=== PATIENT | female | born 1975 | race Caucasian/White ===

== ENCOUNTER 2024-07-20 10:04 | Inpatient (IN) | payer OTHER ==
[~2024-07-20] VITALS: Ht 144.8 cm; Wt 110.5 kg
[~2024-07-20 10:04] MED LIST: Bactrim Ds Tab1 EACH PO; DIPATR PO; DOCU100 PO; Gemfibrozil600 MG PO; METF500 PO; METHI10; YASMIN; Zofran Odt4 MG SL; [UNRECOGNIZED DRUG - OTHER] PO
[2024-07-20] MEDS ORDERED: Ondansetron HCl 2 MG / ML 2ML Vial IV PRN (10:20)
[2024-07-20] MEDS ORDERED: NORG-EE 0.18-01 EACH PO (10:33)
[2024-07-20] MEDS ORDERED: GEMFIBROZIL600 MG PO (10:33)
[2024-07-20] MEDS ORDERED: FOLI1 PO (10:33)
[2024-07-20] MEDS ORDERED: LOSA50 PO (10:33)
[2024-07-20] MEDS ORDERED: METFORMIN HCL500 M3 PO (10:34)
[2024-07-20] MEDS ORDERED: NS 1,000 ML IV SCH ×2 (10:35→15:25)
[2024-07-20 10:36] LABS: BASOPHILS ABSOLUTE AUTO 0.02 K/mm3 (0.00-0.23); BASOPHILS PERCENT AUTO 0 % (0-2); EOSINOPHILS ABSOLUTE AUTO 0.02 K/mm3 (0.00-0.68); EOSINOPHILS PERCENT AUTO 0 % (0-6); Hematocrit 37.1 % (33.0-51.0); IMMATURE GRAN ABSOLUTE AUTO 0.07 K/mm3 (0.00-0.10); IMMATURE GRAN PERCENT AUTO 1 % (0-1); LYMPHOCYTES PERCENT AUTO 5 % (21-46); MONOCYTES ABSOLUTE AUTO 0.12 K/mm3 (0.16-1.47); MONOCYTES PERCENT AUTO 1 % (4-13); Mean Corpuscular HGB 32.7 pg (26.0-34.0); Mean Corpuscular HGB Conc 32.3 g/dL (31.5-36.5); Mean Corpuscular Volume 101 fL (80-100); NEUTROPHILS ABSOLUTE AUTO 11.41 K/mm3 (1.96-9.15); NEUTROPHILS PERCENT AUTO 93 % (41-73); RDW Standard Deviation 58.4 fL (35.1-46.3); Red Blood Cell Count 3.67 M/mm3 (3.80-5.20); White Blood Cell Count 12.24 K/mm3 (4.00-11.30)
[2024-07-20] MEDS ORDERED: Ketorolac Tromethamine 15mg Vial IV ONE (10:50)
[2024-07-20 12:03] LABS: Platelet Count 284 K/mm3 (150-400)
[2024-07-20 12:49] LABS: Source, Urine Clean Catch
[2024-07-20 13:17] LABS: Appearance, Urine Clear (Clear); Bilirubin, Urine Neg (Neg); Blood, Urine 1+ (Neg); Color, Urine Yellow (P-Yellow); Glucose Qualitative, Urine Neg (Neg); Ketones, Urine Neg (Neg); Leukocyte Esterase, Urine Neg (Neg); Nitrite, Urine Neg (Neg); Protein, Urine 2+ (Neg); Specific Gravity, Urine 1.015 (1.003-1.022); Urobilinogen, Urine NORM (Normal)
[2024-07-20 13:33] LABS: Bacteria Few /hpf; Squamous Epithelial Cells Mod /hpf (Few)
[2024-07-20 13:37] LABS: Albumin, Blood 2.8 g/dL (3.4-5.0); Albumin/Globulin Ratio 0.6 (0.8-1.8); Bilirubin, Total 0.4 mg/dL (0.1-1.0); Bun/Creatinine Ratio 14.9 (12.0-20.0); Calcium, Blood 8.7 mg/dL (8.5-10.1); Creatinine, Blood 3.15 mg/dL (0.40-1.00); Globulin, Blood 4.8 g/dL (2.2-4.0); Potassium, Blood 5.5 mmol/L (3.5-5.5); Total Protein, Blood 7.6 g/dL (6.4-8.2)
[2024-07-20] MEDS ORDERED: HYDROmorphone HCl/Pf 1MG SYR IV PRN (15:30)
[2024-07-20] MEDS ORDERED: Prochlorperazine Edisylate 10 mg Vial IV PRN (15:30)
[2024-07-20] MEDS ORDERED: Acetaminophen 325 MG TABLET PO PRN (15:30)
[2024-07-20] MEDS ORDERED: FLU VACC TS2024-25(6MOS UP)/PF 45 MCG/0.5 ML SYRINGE IM SCH (15:30)
[2024-07-20] MEDS ORDERED: CefTRIAXone Sodium 2,000 MG in NS 100 ML IV SCH (16:00)
[2024-07-20] MEDS ORDERED: Insulin Regular 100 UNIT/ML 10ML Vial SC SCH (16:30)
[2024-07-20] MEDS ORDERED: Gemfibrozil 600 MG Tab PO SCH (16:30)
[2024-07-20 17:28] VITALS: BP 146/83
[2024-07-20 19:22] VITALS: BP 147/86
--- NOTE | 2024-07-20 19:31 | NUR ---
ADMIT NTOE PATIENT BROUGHT UP FROM ER. IV RECEPHIN WAS INFUSING AND COMPLETED. A/OX3. COULD NOT TELL ME DATE. DEVELOPMENTAL DELAY. REPEATS WHAT SHE IS TOLD. DENTAL CARIES. OBESITY. REDDENED AREA TO LEFT BREAST AND EXCORIATION TO LEFT AISHA WITH CENTRAL OPENING. WEARING PAD FOR LEAKING/URGENCY. OTHERWISE CONTINENT. ROOM AIR. IV TO RFA. STANDBY ASSIST TO COMMODE. NO NAUSEA AT THIS TIME. TOOK ONE PILL WHOLE WITH WATER. ADMISSION COMPLETED. REPORT GIVEN TO GENNY RUIZ.
[2024-07-21 04:08] VITALS: BP 127/78
--- NOTE | 2024-07-21 06:20 | NUR ---
SHIFT SUMMARY PT ALERT AND ORIENTED TIMES 1-2 . PT IS ER XFER WITH [facility]. PT HAS CONTINUOUS NS @ 100. PT HAS SCD S BILATERAL. SCD'S ARE IN ROOM. PT IS DEVELOPMENTALY DELAYED AND HAS MOTHER AT BEDSIDE. PT IS RECEPTIVE TO CARE. PT APPEARS TO HAVE SLEPT THROUGH THE NIGHT WITHOUT ISSUE. BED IN LOW POSITION, CALL LIGHT WITHIN REACH, RAILS TIMES 2.
[2024-07-21 07:02] VITALS: BP 135/87
[2024-07-21 07:27] LABS: BASOPHILS ABSOLUTE AUTO 0.02 K/mm3 (0.00-0.23); BASOPHILS PERCENT AUTO 0 % (0-2); EOSINOPHILS ABSOLUTE AUTO 0.03 K/mm3 (0.00-0.68); EOSINOPHILS PERCENT AUTO 0 % (0-6); Hematocrit 32.4 % (33.0-51.0); Hemoglobin 10.3 g/dL (11.5-16.0); Mean Corpuscular HGB 31.9 pg (26.0-34.0); Mean Corpuscular HGB Conc 31.8 g/dL (31.5-36.5); Mean Corpuscular Volume 100 fL (80-100); Mean Platelet Volume 9.7 fL (9.1-12.4); Platelet Count 248 K/mm3 (150-400); RDW Coefficient Variation 16.2 % (11.7-14.2); RDW Standard Deviation 59.5 fL (35.1-46.3); Red Blood Cell Count 3.23 M/mm3 (3.80-5.20); White Blood Cell Count 11.18 K/mm3 (4.00-11.30)
[2024-07-21 07:41] LABS: IMMATURE GRAN ABSOLUTE AUTO 0.07 K/mm3 (0.00-0.10); IMMATURE GRAN PERCENT AUTO 1 % (0-1); LYMPHOCYTES ABSOLUTE AUTO 0.67 K/mm3 (0.84-5.20); LYMPHOCYTES PERCENT AUTO 6 % (21-46); MONOCYTES ABSOLUTE AUTO 0.06 K/mm3 (0.16-1.47); MONOCYTES PERCENT AUTO 1 % (4-13); NEUTROPHILS ABSOLUTE AUTO 10.33 K/mm3 (1.96-9.15); NEUTROPHILS PERCENT AUTO 92 % (41-73)
[2024-07-21 07:49] LABS: BASOPHILS ABSOLUTE MAN 0.11 K/mm3 (0.00-0.23); BASOPHILS PERCENT MAN 1 % (0-2); EOSINOPHILS PERCENT MAN 0 % (0-6); LYMPHOCYTES ABSOLUTE MAN 0.44 K/mm3 (0.84-5.20); LYMPHOCYTES PERCENT MAN 4 % (21-46); MONOCYTES ABSOLUTE MAN 0.11 K/mm3 (0.16-1.47); MONOCYTES PERCENT MAN 1 % (4-13); SEG NEUTROPHILS PERCENT MAN 94 % (41-73); TOTAL CELLS COUNTED 100
[2024-07-21 07:51] LABS: Creatinine, Blood 3.39 mg/dL (0.40-1.00)
[2024-07-21] MEDS ORDERED: NS 500 ML IV SCH (08:50)
[2024-07-21] MEDS ORDERED: NORGESTIMATE PO SCH (09:00)
[2024-07-21] MEDS ORDERED: ETHINYL ESTRADIOL PO SCH (09:00)
[2024-07-21 15:34] VITALS: BP 132/76
--- NOTE | 2024-07-21 17:22 | NUR ---
SUMMARY- PT A/O X3, VERBAL AND INTERACTIVE WITH HX DEV DELAY. FAMILY IN THE ROOM ALL DAY INVOLVED/SUPPORTIVE IN PT CARE. PT UP IN THE CHAIR FOR MEALS. TOLERATING FLUIDS BUT NO APPETITE FOR FOOD RELATED TO ABD DISCOMFORT. HAD 1 PUDDING ALL DAY FOR SOLID INTAKE. PT DRANK AMPLE SODA, ONCE SODA DC'D, PT DECLINES TO DRINK WATER OR JUCH JUICE; WILL CONT TO PUSH FLUIDS PT ALLOWS. VOIDED TWICE THIS SHIFT APPROX 250ML EACH VOID MED YELLOW. PT HAVING INTERMITTANT ABD PAIN, MED WITH DILAUDID ONCE WITH RELEIF. WILL REPORT TO NOC RN
[2024-07-21 19:39] VITALS: BP 125/66
[2024-07-22 04:08] VITALS: BP 114/76
--- NOTE | 2024-07-22 06:42 | NUR ---
SHIFT SUMMARY PT ALERT AND ORIENTED TIMES 1-2 . PT IS ER XFER WITH WISAM. PT HAS CONTINUOUS NS @ 100. PT HAS SCD S BILATERAL. PT IS DEVELOPMENTALY DELAYED AND HAS MOTHER AT BEDSIDE. PT IS RECEPTIVE TO CARE. PT APPEARS TO HAVE SLEPT ON AND OFF AND WITH ASSIST ABLE TO USE BEDSIDE COMMODE. PT DID WAKE UP IN EXTREME PAIN AND WAS GIVEN DILAUDID, WHICH WAS EFFECTIVE. BED IN LOW POSITION, CALL LIGHT WITHIN REACH, RAILS TIMES 2.
[2024-07-22 07:48] VITALS: BP 117/75
[2024-07-22 08:11] LABS: Bun/Creatinine Ratio 12.9 (12.0-20.0); Calcium, Blood 8.5 mg/dL (8.5-10.1); Creatinine, Blood 3.25 mg/dL (0.40-1.00)
[2024-07-22 12:04] VITALS: BP 131/70
[2024-07-22 16:15] VITALS: BP 129/94
[2024-07-22] MEDS ORDERED: Sennosides 8.6 MG Tab PO PRN (17:10)
--- NOTE | 2024-07-22 18:29 | NUR ---
SUMMARY- PT A/O X3, SITS UP IN THE CHAIR FOR MEALS. AMBULATES SBA. ENCOURATING FOOD AND FLUIDS IN THE WAY OF WATER AND JUICE. IVF DC'D TODAY. PT HAD LG BM TODAY. VOIDING MED TO LIGHT YELLOW URINE. HAD A FEW INTERMITTANT EPISODES OF ABD PAIN, COMES ON STRONG, HOLDS ONTO HER R SIDE, PAIN SUBSIDES ON ITS OWN WITHIN 10 MIN. MOM AT BEDSIDE, SUPPORTIVE IN PT CARE PT IS DEV DELAYED AND RELEYS ON HER MOM FOR SECURITY, MOM WILL STAY THE NIGHT.
[2024-07-22 19:33] VITALS: BP 145/90
--- NOTE | 2024-07-23 05:05 | NUR ---
PT SLEPT WELL THIS NIGHT. VS WNL, DENIES PAIN, UP TO BR WITH SBA. MOM AT BEDSIDE D/T DEVELOPE DELAYED. VERY HAPPY, PLEASANT, AND COOPERATIVE INDIVIDUAL. VOIDING AND HAD BM. CBG 137 NO COVERAGE REQUIRED. PLAN TO RETURN HOME WITH MOM.
[2024-07-23 07:26] VITALS: BP 139/86
[2024-07-23] MEDS ORDERED: ACET325 PO (11:51)
[2024-07-23] MEDS ORDERED: AMOCLA500 PO (11:52)
--- NOTE | 2024-07-23 13:56 | NUR ---
DISCHARGE REVIEWED WITH PT AND MOTHER FOR INSTRUCT AND MEDS. SHE VERBALIZED UNDERSTANDING . AIDE TO REMOVE IV NO TELE. PT WHEELED TO DOOR AT 1358
== END 2024-07-23 13:58 | disposition home or self-care (01) | DRG 394 ==
LOC: ER 10:04 → MEDS 15:27
PROVIDERS: Physician Assistant; Student in an Organized Health Care Education/Training Program; ADMIT Internal Medicine
DX: K35.80 Unspecified acute appendicitis (principal); E87.20 Acidosis, unspecified; N18.5 Chronic kidney disease, stage 5; N17.9 Acute kidney failure, unspecified; E78.5 Hyperlipidemia, unspecified; E11.22 Type 2 diabetes mellitus with diabetic chronic kidney disease; R62.50 Unspecified lack of expected normal physiological development in childhood; I12.9 Hypertensive chronic kidney disease with stage 1 through stage 4 chronic kidney disease, or unspecified chronic kidney disease; Z88.0 Allergy status to penicillin; Z79.899 Other long term (current) drug therapy; Z79.84 Long term (current) use of oral hypoglycemic drugs
CPT/HCPCS: 36415; 74177; 80048; 80053; 81001; 82570; 82947; 83690; 84300; 85025; 96361; 96374-59; 99285-25; A9270; J0696; J1171; J1815; J1885; J2405; J7030; Q9967

== ENCOUNTER 2024-07-29 10:21 | Emergency (ER) | payer OTHER ==
[~2024-07-29] VITALS: Ht 144.8 cm; Wt 108.9 kg
[~2024-07-29 10:21] MED LIST changes: +ACET325 PO; +AMOCLA500 PO; +FOLI1 PO; +GEMFIBROZIL600 MG PO; +LOSA50 PO; +METFORMIN HCL500 M3 PO; +NORG-EE 0.18-01 EACH PO
[2024-07-29] MEDS ORDERED: NS 1,000 ML IV SCH (11:15)
[2024-07-29 11:28] LABS: Hematocrit 28.1 % (33.0-51.0); Hemoglobin 8.9 g/dL (11.5-16.0); Mean Corpuscular HGB 32.2 pg (26.0-34.0); Mean Corpuscular HGB Conc 31.7 g/dL (31.5-36.5); Mean Corpuscular Volume 102 fL (80-100); Mean Platelet Volume 9.8 fL (9.1-12.4); Platelet Count 114 K/mm3 (150-400); RDW Coefficient Variation 15.2 % (11.7-14.2); RDW Standard Deviation 56.6 fL (35.1-46.3); Red Blood Cell Count 2.76 M/mm3 (3.80-5.20); White Blood Cell Count 1.01 K/mm3 (4.00-11.30)
[2024-07-29 11:51] LABS: Albumin, Blood 2.4 g/dL (3.4-5.0); Albumin/Globulin Ratio 0.4 (0.8-1.8); Bilirubin, Total 0.6 mg/dL (0.1-1.0); Calcium, Blood 9.1 mg/dL (8.5-10.1); Creatinine, Blood 3.24 mg/dL (0.40-1.00); Globulin, Blood 6.1 g/dL (2.2-4.0); Potassium, Blood 4.7 mmol/L (3.5-5.5); Total Protein, Blood 8.5 g/dL (6.4-8.2)
[2024-07-29 11:52] LABS: Source, Urine Clean Catch
[2024-07-29 12:28] LABS: Appearance, Urine Cloudy (Clear); Bilirubin, Urine Neg (Neg); Blood, Urine 1+ (Neg); Color, Urine Yellow (P-Yellow); Glucose Qualitative, Urine Neg (Neg); Ketones, Urine 1+ (Neg); Leukocyte Esterase, Urine Neg (Neg); Nitrite, Urine Neg (Neg); Protein, Urine 3+ (Neg); Urobilinogen, Urine NORM (Normal)
[2024-07-29 12:56] LABS: BASOPHILS ABSOLUTE MAN 0.02 K/mm3 (0.00-0.23); BASOPHILS PERCENT MAN 2 % (0-2); EOSINOPHILS ABSOLUTE MAN 0.08 K/mm3 (0.00-0.68); EOSINOPHILS PERCENT MAN 8 % (0-6); LYMPHOCYTES PERCENT MAN 40 % (21-46); MONOCYTES PERCENT MAN 0 % (4-13); SEG NEUTROPHILS PERCENT MAN 50 % (41-73); TOTAL CELLS COUNTED 50
[2024-07-29 13:00] LABS: Amorphous Mod (0-Heavy); Granular Casts 0-2 /lpf (0); Uric Acid Crystals Mod /hpf
[2024-07-29 13:01] LABS: Red Blood Cells, Urine 0-2 /hpf (0-2); White Blood Cells, Urine 0-2 /hpf (0-5)
[2024-07-29 13:02] LABS: Squamous Epithelial Cells Many /hpf (Few)
[2024-07-29 13:03] LABS: Bacteria Mod /hpf; Yeast/Fungi Urine Rare /hpf
[2024-07-29 13:04] LABS: Mucus Light (0-Heavy)
[2024-07-29] MEDS ORDERED: OMEP20ER PO (14:06)
[2024-07-29] MEDS ORDERED: ONDA4ODT MM (14:06)
[2024-07-29 14:24] VITALS: BP 135/83
[2024-08-01] MEDS ORDERED: CIPRO250 MG PO (09:19)
== END 2024-07-29 14:20 | disposition home or self-care (01) ==
LOC: ER 10:21
PROVIDERS: Emergency Medicine
DX: I13.2 Hypertensive heart and chronic kidney disease with heart failure and with stage 5 chronic kidney disease, or end stage renal disease (principal); R10.9 Unspecified abdominal pain; D61.818 Other pancytopenia; E11.22 Type 2 diabetes mellitus with diabetic chronic kidney disease; I50.9 Heart failure, unspecified; N18.6 End stage renal disease; Z79.3 Long term (current) use of hormonal contraceptives; Z79.02 Long term (current) use of antithrombotics/antiplatelets; Z79.1 Long term (current) use of non-steroidal anti-inflammatories (NSAID); Z79.2 Long term (current) use of antibiotics
CPT/HCPCS: 74177; 80053; 81001; 83690; 85025; 87077; 87086; 87186; 99284-25; Q9967

== ENCOUNTER 2024-08-03 11:24 | Inpatient (IN) | payer OTHER ==
[~2024-08-03] VITALS: Ht 167.6 cm; Wt 112.0 kg
[~2024-08-03 11:24] MED LIST changes: +CIPRO250 MG PO; +OMEP20ER PO; +ONDA4ODT MM
[2024-08-03] MEDS ORDERED: Ondansetron HCl 2 MG / ML 2ML Vial IV ONE (11:40)
[2024-08-03] MEDS ORDERED: Morphine Sulfate 4 MG/1 ML Injection IV ONE ×2 (11:40→13:55)
[2024-08-03 12:25] LABS: Hematocrit 24.3 % (33.0-51.0); Hemoglobin 7.9 g/dL (11.5-16.0); Mean Corpuscular HGB 32.2 pg (26.0-34.0); Mean Corpuscular HGB Conc 32.5 g/dL (31.5-36.5); Mean Corpuscular Volume 99 fL (80-100); Mean Platelet Volume 12.9 fL (9.1-12.4); Platelet Count 58 K/mm3 (150-400); RDW Coefficient Variation 15.9 % (11.7-14.2); RDW Standard Deviation 57.1 fL (35.1-46.3); Red Blood Cell Count 2.45 M/mm3 (3.80-5.20)
[2024-08-03 12:36] LABS: BASOPHILS PERCENT AUTO 0 % (0-2); EOSINOPHILS ABSOLUTE AUTO 0.01 K/mm3 (0.00-0.68); EOSINOPHILS PERCENT AUTO 3 % (0-6); IMMATURE GRAN PERCENT AUTO 0 % (0-1); LYMPHOCYTES ABSOLUTE AUTO 0.26 K/mm3 (0.84-5.20); LYMPHOCYTES PERCENT AUTO 87 % (21-46); MONOCYTES ABSOLUTE AUTO 0.01 K/mm3 (0.16-1.47); MONOCYTES PERCENT AUTO 3 % (4-13); NEUTROPHILS ABSOLUTE AUTO 0.02 K/mm3 (1.96-9.15); NEUTROPHILS PERCENT AUTO 7 % (41-73)
[2024-08-03 12:50] LABS: BASOPHILS PERCENT MAN 0 % (0-2); EOSINOPHILS PERCENT MAN 0 % (0-6); LYMPHOCYTES ABSOLUTE MAN 0.28 K/mm3 (0.84-5.20); LYMPHOCYTES PERCENT MAN 96 % (21-46); MONOCYTES PERCENT MAN 0 % (4-13); NEUTROPHILS ABSOLUTE MAN 0.01 K/mm3 (1.96-9.15); SEG NEUTROPHILS PERCENT MAN 4 % (41-73); TOTAL CELLS COUNTED 25
[2024-08-03 15:10] LABS: Magnesium, Blood 2.5 mg/dL (1.6-2.4)
[2024-08-03 15:30] LABS: Albumin, Blood 1.9 g/dL (3.4-5.0); Albumin/Globulin Ratio 0.3 (0.8-1.8); Bilirubin, Total 0.6 mg/dL (0.1-1.0); Bun/Creatinine Ratio 19.6 (12.0-20.0); Creatinine, Blood 5.5 mg/dL (0.40-1.00); Globulin, Blood 6.4 g/dL (2.2-4.0); Potassium, Blood 5.2 mmol/L (3.5-5.5); Total Protein, Blood 8.3 g/dL (6.4-8.2)
[2024-08-03] MEDS ORDERED: FentaNYL Citrate 50 MCG/ML 2 ML Injection IV ONE (15:35)
[2024-08-03 16:11] LABS: Source, Urine Clean Catch
[2024-08-03 16:17] LABS: Appearance, Urine Cloudy (Clear); Bilirubin, Urine Neg (Neg); Blood, Urine 1+ (Neg); Color, Urine Yellow (P-Yellow); Glucose Qualitative, Urine Neg (Neg); Ketones, Urine Neg (Neg); Leukocyte Esterase, Urine Neg (Neg); Nitrite, Urine Neg (Neg); Protein, Urine 3+ (Neg); Urobilinogen, Urine NORM (Normal)
[2024-08-03 16:33] LABS: Amorphous Mod (0-Heavy); Red Blood Cells, Urine 0-2 /hpf (0-2); White Blood Cells, Urine 0-2 /hpf (0-5)
[2024-08-03 16:34] LABS: Bacteria Few /hpf; Squamous Epithelial Cells Few /hpf (Few)
[2024-08-03] MEDS ORDERED: NS 1,000 ML IV SCH (16:35)
[2024-08-03] MEDS ORDERED: Ampicillin Sod/Sulbactam Sod 3 GM in NS 100 ML IV SCH (17:00)
[2024-08-03] MEDS ORDERED: FLU VACC TS2024-25(6MOS UP)/PF 45 MCG/0.5 ML SYRINGE IM SCH (17:00)
[2024-08-03 18:03] LABS: Hemoglobin 7.1 g/dL (11.5-16.0); Mean Corpuscular HGB 32.6 pg (26.0-34.0); Mean Corpuscular HGB Conc 32.3 g/dL (31.5-36.5); Mean Corpuscular Volume 101 fL (80-100); Mean Platelet Volume 11.7 fL (9.1-12.4); Platelet Count 64 K/mm3 (150-400); RDW Coefficient Variation 15.4 % (11.7-14.2); RDW Standard Deviation 56.7 fL (35.1-46.3); Red Blood Cell Count 2.18 M/mm3 (3.80-5.20)
[2024-08-03 18:08] LABS: IMMATURE RETIC FRACTION 5.5 % (2.3-16.0); RETIC HGB EQUIVALENT 35.3 pg (28.20-36.60); RETICULOCYTE ABSOLUTE 0.008 M/mm3 (0.0200-0.1100); RETICULOCYTE COUNT PERCENT 0.36 % (0.50-2.50)
[2024-08-03 18:10] LABS: White Blood Cell Count 0.26 K/mm3 (4.00-11.30)
[2024-08-03 18:23] LABS: BASOPHILS ABSOLUTE MAN 0.01 K/mm3 (0.00-0.23); BASOPHILS PERCENT MAN 4 % (0-2); EOSINOPHILS PERCENT MAN 0 % (0-6); International Normalized Ratio 1.13; LYMPHOCYTES ABSOLUTE MAN 0.24 K/mm3 (0.84-5.20); LYMPHOCYTES PERCENT MAN 96 % (21-46); MONOCYTES PERCENT MAN 0 % (4-13); TOTAL CELLS COUNTED 25
[2024-08-03 18:41] VITALS: BP 104/49
[2024-08-03] MEDS ORDERED: OxyCODONE HCL 5 MG TAB PO PRN (19:05)
[2024-08-03] MEDS ORDERED: Acetaminophen 325 MG TABLET PO PRN (19:05)
[2024-08-03 20:32] VITALS: BP 153/112
[2024-08-03] MEDS ORDERED: Lactobacil 2-S.Thermo-Bifido 1 1 Cap PO SCH (21:00)
[2024-08-03 22:33] LABS: Hemoglobin 6.3 g/dL (11.5-16.0); Mean Corpuscular HGB 31.8 pg (26.0-34.0); Mean Corpuscular HGB Conc 31.5 g/dL (31.5-36.5); Mean Corpuscular Volume 101 fL (80-100); Mean Platelet Volume 11.1 fL (9.1-12.4); Platelet Count 65 K/mm3 (150-400); RDW Coefficient Variation 15.7 % (11.7-14.2); RDW Standard Deviation 57.5 fL (35.1-46.3); Red Blood Cell Count 1.98 M/mm3 (3.80-5.20)
[2024-08-03 22:54] LABS: White Blood Cell Count 0.32 K/mm3 (4.00-11.30)
--- NOTE | 2024-08-03 23:03 | NUR ---
LAB REPORTS WBC COUNT 0.32, CHARGE NURSE NOTIFIED
[2024-08-03 23:25] VITALS: BP 143/82
[2024-08-04] VITALS (10 sets, daily range): BP systolic 118–143; BP diastolic 69–95
[2024-08-04] MEDS ORDERED: NS 500 ML IV SCH (00:40)
[2024-08-04] MEDS ORDERED: FentaNYL Citrate 50 MCG/ML 2 ML Injection IV ONE (01:35)
[2024-08-04] MEDS ORDERED: HYDROmorphone HCl 0.5 MG/0.5 ML SYR IV PRN ×2 (04:05→10:25)
--- NOTE | 2024-08-04 04:58 | NUR ---
SHIFT SUMMARY PT ALERT AND ORIENTED TO SELF AND MOTHER. PT HAS DEVELOPMENTAL DELAY. SHE IS ABLE TO SAY YES AND NO TO QUESTIONS AND MAKE ONE TO TWO WORDS SENTENCES. PT ENDORSES SEVERE PAIN IN HER RIGHT ABDOMEN. SEE NEW ORDERS REGARDING PAIN MEDICATION. PT ALSO USING HEATING PAD TO ALLEVIATE PAIN. OBEYS COMMANDS, COOPERATIVE WITH CARE. MOTHER AT BEDSIDE AND IS HELPFUL. IN A SINUS RHYTHM TO SINUS TACH, HR 90 S TO 110 S. PT DENIES CHEST PAIN/PRESSURE. BLE EDEMA 2+. RA-2L NC DEPENDING ON OXYGEN DEMAND. PT IS TACHYPNEIC, RR 26-28. RA AT BASELINE. PT ON BEDREST AT THIS TIME. AT BL ABLE TO AMBULATE INDEPENDENTLY. Q2 TURNS. PT IS CONTINENT AT BL, BUT HAS BEEN INTERMITTENTLY INCONTINENT AT HOME WITHIN LAST FEW DAYS, PER MOTHER. NO OUTPUT THIS SHIFT. POWER GLIDE INSERTED, PATENT AND DRAWS WELL. PT RECEIVED 1 UNIT PRBC THIS SHIFT DUE TO HGB OF 6.3. SKIN BREAKDOWN EXHIBITED ON LABIA, BUTTOCKS, UNDER LEFT BREAST UPON ADMISSION. SEE PHOTOS IN CHART.
[2024-08-04 05:49] LABS: Hematocrit 22.2 % (33.0-51.0); Hemoglobin 7.2 g/dL (11.5-16.0); Mean Corpuscular HGB 31.9 pg (26.0-34.0); Mean Corpuscular HGB Conc 32.4 g/dL (31.5-36.5); Mean Corpuscular Volume 98 fL (80-100); Mean Platelet Volume 10.8 fL (9.1-12.4); Platelet Count 70 K/mm3 (150-400); RDW Coefficient Variation 17.2 % (11.7-14.2); RDW Standard Deviation 61.1 fL (35.1-46.3); Red Blood Cell Count 2.26 M/mm3 (3.80-5.20)
[2024-08-04 06:01] LABS: White Blood Cell Count 0.27 K/mm3 (4.00-11.30)
[2024-08-04 06:11] LABS: Albumin, Blood 1.8 g/dL (3.4-5.0); Albumin/Globulin Ratio 0.3 (0.8-1.8); Bilirubin, Total 0.7 mg/dL (0.1-1.0); Bun/Creatinine Ratio 18.1 (12.0-20.0); Calcium, Blood 8.3 mg/dL (8.5-10.1); Creatinine, Blood 6.03 mg/dL (0.40-1.00); Globulin, Blood 5.7 g/dL (2.2-4.0); Potassium, Blood 4.9 mmol/L (3.5-5.5); Total Protein, Blood 7.5 g/dL (6.4-8.2)
[2024-08-04 06:15] LABS: BASOPHILS PERCENT MAN 0 % (0-2); EOSINOPHILS PERCENT MAN 0 % (0-6); LYMPHOCYTES ABSOLUTE MAN 0.24 K/mm3 (0.84-5.20); LYMPHOCYTES PERCENT MAN 92 % (21-46); MONOCYTES PERCENT MAN 0 % (4-13); NEUTROPHILS ABSOLUTE MAN 0.02 K/mm3 (1.96-9.15); SEG NEUTROPHILS PERCENT MAN 8 % (41-73); TOTAL CELLS COUNTED 25
[2024-08-04] MEDS ORDERED: HYDROmorphone HCl 0.5 MG/0.5 ML SYR IV ONE (09:30)
[2024-08-04] MEDS ORDERED: Lactated Ringer's 1,000 ML IV SCH (10:25)
[2024-08-04 13:41] LABS: Hematocrit 23.5 % (33.0-51.0); Hemoglobin 7.5 g/dL (11.5-16.0); Mean Corpuscular HGB 31.9 pg (26.0-34.0); Mean Corpuscular HGB Conc 31.9 g/dL (31.5-36.5); Mean Corpuscular Volume 100 fL (80-100); Mean Platelet Volume 10.3 fL (9.1-12.4); Platelet Count 68 K/mm3 (150-400); RDW Coefficient Variation 18.1 % (11.7-14.2); RDW Standard Deviation 65.2 fL (35.1-46.3); Red Blood Cell Count 2.35 M/mm3 (3.80-5.20)
[2024-08-04 13:45] LABS: White Blood Cell Count 0.23 K/mm3 (4.00-11.30)
[2024-08-04 14:03] LABS: BASOPHILS PERCENT MAN 0 % (0-2); EOSINOPHILS PERCENT MAN 0 % (0-6); LYMPHOCYTES ABSOLUTE MAN 0.22 K/mm3 (0.84-5.20); LYMPHOCYTES PERCENT MAN 96 % (21-46); MONOCYTES PERCENT MAN 4 % (4-13); TOTAL CELLS COUNTED 25
[2024-08-04] MEDS ORDERED: Lactated Ringer's 1,000 ML IV ONE (14:35)
[2024-08-04] MEDS ORDERED: NS 1,000 ML IV SCH (15:30)
[2024-08-04] MEDS ORDERED: Sodium Bicarb 8.4% Inj 75 MEQ in Sodium Chloride 0.45% 1,000 ML IV SCH (15:40)
[2024-08-04] MEDS ORDERED: FILGRASTIM-AYOW 480 MCG/0.8 ML 0.8MLSYR SC SCH (16:00)
[2024-08-04 16:17] LABS: Source, Urine Foley catheter
[2024-08-04 16:22] LABS: Appearance, Urine Hazy (Clear); Bilirubin, Urine Neg (Neg); Blood, Urine 3+ (Neg); Color, Urine Yellow (P-Yellow); Glucose Qualitative, Urine Neg (Neg); Ketones, Urine Neg (Neg); Leukocyte Esterase, Urine Neg (Neg); Nitrite, Urine Neg (Neg); Protein, Urine 3+ (Neg); Urobilinogen, Urine NORM (Normal)
[2024-08-04 16:23] LABS: Base Excess Venous -19.4 mmol/L; Bicarbonate Venous 10.8 mmol/L (24.0-30.0); PCO2 Venous 32.9 mmHg (38-42)
[2024-08-04 16:32] LABS: Amorphous Mod (0-Heavy); Bacteria Few /hpf; Squamous Epithelial Cells Not Seen /hpf (Few); White Blood Cells, Urine 0-2 /hpf (0-5); Yeast/Fungi Urine Mod /hpf
[2024-08-04 17:19] LABS: Albumin, Blood 1.7 g/dL (3.4-5.0); Anion Gap 21 mmol/L (3-11); Blood Urea Nitrogen 107 mg/dL (8-24); Bun/Creatinine Ratio 17.5 (12.0-20.0); CO2, Blood 11 mmol/L (21-32); Calcium, Blood 8.1 mg/dL (8.5-10.1); Chloride, Blood 108 mmol/L (98-108); Glomerular Filtration Rate 8 (60-); Glucose, Blood 153 mg/dL (70-99); Phosphorus, Blood 9.4 mg/dL (2.5-4.9); Potassium, Blood 5.5 mmol/L (3.5-5.5); Sodium, Blood 134 mmol/L (136-145)
[2024-08-04 17:26] LABS: Influenza A, PCR NEGATIVE (NEGATIVE); Influenza B, PCR NEGATIVE (NEGATIVE); Resp Syncytial Virus, PCR NEGATIVE (NEGATIVE); SARS-Cov-2 (COVID-19) PCR, MMC NEGATIVE (NEGATIVE)
[2024-08-04] MEDS ORDERED: Sodium Bicarb 8.4% Inj 150 MEQ in Dextrose 5% 1,000 ML IV SCH (17:40)
--- NOTE | 2024-08-04 18:26 | NUR ---
SHIFT SUMMARY: NEURO: AT BEGINING OF SHIFT PT WAS RESPONSIVE AND ABLE TO ANSWER YES AND NO TO QUESTIONS. THROUGOUT SHIFT PT BECAME LETHARGIC AND LESS RESPONSIVE. PT AWAKENS TO VERBAL AND NOXIOUS STIMULI BUT ONLY OPENS EYES BRIEFLY. PT NOT ANSWERING YES OR NO QUESTIONS BY THE END OF THE SHIFT. CARDIAC: NO ACUTE CHANGES RESP: PTS LUNG SOUNDS DIFFICULT TO AUSCULTATE DUE TO PT CONTINUOUSLY MOANING. ANABLE TO HEAR LUNG SOUNDS PAST AUDITORY NOISES. GI/: PT DID NOT HAVE ANY URINARY OUPUT THIS AM SINCE ARRIVAL LAST NIGHT DESPITE IV FLUIDS. CHUNG WAS PLACED PER PROVIDER ORDERS. 600ML WAS DRAINED INITIALLY. PT HAS NOT HAD A BOWEL MOVEMENT TODAY. SKIN: PTS GROIN AND ELIEZER AREA IS COMPLATELY EXCORRIATED AND IRRITATED WITH BLISTERS AND OPEN SORES WHICH ALSO WARANTED A CHUNG. PT HAS BEEN TURNED Q2. PT WENT FOR A CT TODAY AND RECIEVED MORE BLOOD WORK. PT HAD MULTIPLE CRITICAL LABS AND THE PROVIDER WAS NOTIFIED. NO OTHER SIGNIFICANT EVENTS HAPPENED DURING THIS SHIFT. WILL CONTINUE TO CARE FOR PT TILL END OF SHIFT.
[2024-08-04 19:31] LABS: Mean Corpuscular HGB 31.7 pg (26.0-34.0); Mean Corpuscular HGB Conc 31.8 g/dL (31.5-36.5); Mean Corpuscular Volume 100 fL (80-100); Mean Platelet Volume 10.6 fL (9.1-12.4); Platelet Count 74 K/mm3 (150-400); Red Blood Cell Count 2.21 M/mm3 (3.80-5.20)
[2024-08-04 19:34] LABS: White Blood Cell Count 0.24 K/mm3 (4.00-11.30)
[2024-08-04 20:16] LABS: BASOPHILS PERCENT MAN 0 % (0-2); EOSINOPHILS PERCENT MAN 4 % (0-6); LYMPHOCYTES ABSOLUTE MAN 0.22 K/mm3 (0.84-5.20); LYMPHOCYTES PERCENT MAN 92 % (21-46); MONOCYTES PERCENT MAN 0 % (4-13); SEG NEUTROPHILS PERCENT MAN 4 % (41-73); TOTAL CELLS COUNTED 25
[2024-08-04 22:45] LABS: Bun/Creatinine Ratio 18.3 (12.0-20.0); Calcium, Blood 7.8 mg/dL (8.5-10.1); Creatinine, Blood 6.24 mg/dL (0.40-1.00); Potassium, Blood 5.3 mmol/L (3.5-5.5)
[2024-08-05] VITALS (10 sets, daily range): BP systolic 107–154; BP diastolic 60–82
--- NOTE | 2024-08-05 01:03 | NUR ---
[facility]SF[facility] CALLED. UPDATE ON PTS STATUS GIVEN. PT IS CURRENTLY SECOND IN LINE FOR A BED ON THE [facility] TRANSPLANT UNIT.
[2024-08-05 03:21] LABS: Uric Acid, Blood 10.1 mg/dL (2.6-6.0)
[2024-08-05 03:29] LABS: Hematocrit 21.6 % (33.0-51.0); Hemoglobin 6.9 g/dL (11.5-16.0); Mean Corpuscular HGB 31.5 pg (26.0-34.0); Mean Corpuscular HGB Conc 31.9 g/dL (31.5-36.5); Mean Corpuscular Volume 99 fL (80-100); Mean Platelet Volume 10.9 fL (9.1-12.4); Platelet Count 67 K/mm3 (150-400); RDW Standard Deviation 64.6 fL (35.1-46.3); Red Blood Cell Count 2.19 M/mm3 (3.80-5.20)
[2024-08-05 03:34] LABS: White Blood Cell Count 0.19 K/mm3 (4.00-11.30)
[2024-08-05 03:50] LABS: Albumin, Blood 1.7 g/dL (3.4-5.0); Anion Gap 19 mmol/L (3-11); Blood Urea Nitrogen 115 mg/dL (8-24); Bun/Creatinine Ratio 17.9 (12.0-20.0); CO2, Blood 15 mmol/L (21-32); Calcium, Blood 7.5 mg/dL (8.5-10.1); Chloride, Blood 105 mmol/L (98-108); Creatinine, Blood 6.41 mg/dL (0.40-1.00); Glomerular Filtration Rate 7 (60-); Glucose, Blood 234 mg/dL (70-99); Phosphorus, Blood 9.6 mg/dL (2.5-4.9); Potassium, Blood 4.9 mmol/L (3.5-5.5); Sodium, Blood 134 mmol/L (136-145)
[2024-08-05 03:57] LABS: BASOPHILS PERCENT MAN 0 % (0-2); EOSINOPHILS ABSOLUTE MAN 0.01 K/mm3 (0.00-0.68); EOSINOPHILS PERCENT MAN 8 % (0-6); LYMPHOCYTES ABSOLUTE MAN 0.17 K/mm3 (0.84-5.20); LYMPHOCYTES PERCENT MAN 92 % (21-46); MONOCYTES PERCENT MAN 0 % (4-13); TOTAL CELLS COUNTED 25
[2024-08-05 04:16] LABS: SEG NEUTROPHILS PERCENT MAN 0 % (41-73)
--- NOTE | 2024-08-05 06:09 | NUR ---
SHIFT SUMMARY- 1 UNIT PRBC'S GIVEN NEURO: PT WAKES TO VERBAL STIMULI. TRACKS WITH EYES. FOLLOWS COMMANDS WITH FLICKER STRENGTH IN ALL EXTREMETIES. UNABLE TO VERBALIZE THIS SHIFT BUT PT DOES MOAN. EQUAL PINPOINT PUPILS. CARDIAC: TACHYCARDIC IN LOW 100'S. PT IS THIRD SPACING. NOW +3 BLE AND +2 BUE. EXTREMETIES ELEVATED AND SCD'S IN PLACE. LUNGS: DURING THE FIRST ASSESSMENT PT HAD END EXPIRATORY WHEEZES IN UPPER LOBES AND DIMINISHED BASES. PT IS NOW DIMINISHED THROUGHOUT, NO CRACKLES HEARD. ON 4 L NC. GRUNTING/SPLINTING WITH RESPIRATIONS AT A RATE OF 22-30. GI/: HYPOACTIVE BOWEL TONES. NO BM. TENDERNESS AND GUARDING IN RUQ. CHUNG IS DRAINING HAZY YELLOW URINE AT APPROXIMATELY 25ML/HR. CHUNG CARE COMPLETED TWICE THIS SHIFT. SKIN: PT HAS SOME PETECHIA ON BACKSIDE, BLEEDING GUMS, AND ULCERATION ON HER LIP AND TONGUE. MAY BENEFIT FROM MAGIC MOUTHWASH. A NEW RED AREA ON LEFT FOOT THAT APPEARS TO BEGINNING TO BLISTER- PHOTO IN CHART. A FEW OF THE BOILS IN HER GROIN ARE OPEN. INNER DRY APPLIED TO FOLDS. CHG BATH COMPLETED THIS SHIFT, Q8 CHUNG CARE COMPLETED, Q4 SUCTION ORAL CARE AND NEW YONKAUR WAS SET UP. ROOM WAS WIPED DOWN WITH DISINFECTANT AND THE DOOR TO THE PT'S ROOM WAS KEPT CLOSED.
[2024-08-05 09:08] LABS: Base Excess Venous -11.6 mmol/L; Bicarbonate Venous 15.9 mmol/L (24.0-30.0); pH Blood Venous 7.25 (7.34-7.37)
[2024-08-05 09:31] LABS: International Normalized Ratio 1.19; Prothrombin Time Results 12.6 Sec (9.7-11.5)
[2024-08-05 09:34] LABS: Albumin, Blood 1.5 g/dL (3.4-5.0); Albumin/Globulin Ratio 0.3 (0.8-1.8); Bilirubin, Direct 0.7 mg/dL (0.0-0.3); Bilirubin, Indirect 0.2 mg/dL (0.1-0.7); Bilirubin, Total 0.9 mg/dL (0.1-1.0); Globulin, Blood 5.4 g/dL (2.2-4.0); Total Protein, Blood 6.9 g/dL (6.4-8.2)
[2024-08-05 10:54] LABS: Hematocrit 21.7 % (33.0-51.0); Hemoglobin 7.2 g/dL (11.5-16.0); Mean Corpuscular HGB 31.3 pg (26.0-34.0); Mean Corpuscular HGB Conc 33.2 g/dL (31.5-36.5); Mean Platelet Volume 9.9 fL (9.1-12.4); Platelet Count 51 K/mm3 (150-400); RDW Coefficient Variation 19.4 % (11.7-14.2); RDW Standard Deviation 66.4 fL (35.1-46.3)
[2024-08-05 10:56] LABS: BASOPHILS PERCENT AUTO 0 % (0-2); EOSINOPHILS ABSOLUTE AUTO 0.01 K/mm3 (0.00-0.68); EOSINOPHILS PERCENT AUTO 8 % (0-6); IMMATURE GRAN PERCENT AUTO 0 % (0-1); LYMPHOCYTES ABSOLUTE AUTO 0.11 K/mm3 (0.84-5.20); LYMPHOCYTES PERCENT AUTO 85 % (21-46); MONOCYTES PERCENT AUTO 0 % (4-13); Mean Corpuscular Volume 94 fL (80-100); NEUTROPHILS ABSOLUTE AUTO 0.01 K/mm3 (1.96-9.15); NEUTROPHILS PERCENT AUTO 8 % (41-73)
[2024-08-05 10:58] LABS: White Blood Cell Count 0.13 K/mm3 (4.00-11.30)
[2024-08-05 11:34] LABS: BASOPHILS PERCENT MAN 0 % (0-2); EOSINOPHILS PERCENT MAN 4 % (0-6); LYMPHOCYTES ABSOLUTE MAN 0.12 K/mm3 (0.84-5.20); LYMPHOCYTES PERCENT MAN 96 % (21-46); MONOCYTES PERCENT MAN 0 % (4-13); TOTAL CELLS COUNTED 25
[2024-08-05] MEDS ORDERED: HYDROmorphone HCl/Pf 1MG SYR IV PRN (12:30)
[2024-08-05 15:02] LABS: PCO2 Arterial 41.9 mmHg (35-45); PO2 Arterial 77.5 mmHg (80-100); pH Blood Arterial 7.26 (7.35-7.45)
[2024-08-05] MEDS ORDERED: Furosemide 10 MG/ML 4ML Vial IV STA (16:17)
[2024-08-05] MEDS ORDERED: Pantoprazole Sodium 40 MG Injection IV SCH (16:30)
--- NOTE | 2024-08-05 16:41 | NUR ---
SHIFT/ TRANSFER SUMMARY: NEURO: PT VERY DROUSY ANY ALTERED AT THIS BEGINING OF SHIFT. TOWARDS THIS AFTERNOON PT BECAME MORE ALERT AND WAS ABLE TO INTERACT WITH THIS RN MORE. PT ABLE TO ANSWER YES AND NO BUT NOTHING FURTHER. CARDIAC: NO ACUTE CHANGES RESP: PT CONTINUES TO HAVE LABORED BREATHING. ORAL CARE PERFORMED THIS AM. BLOOD CASTS WERE FOUND ON ROOF OF PTS MOUTH. CASTS WERE REMOVED AND PTS BREATHING DOES SOUND LESS "GRUNTED". PT CONTINUES TO HAVE BLEEDING IN MOUTH FROM BITING CHEEK AND LIP. LUNG SOUNDS DIM. CHEST XR PERFORMED THIS AFTERNOON. GI/: PT DID NOT HAVE A BOWEL MOVEMENT TODAY. CHUNG REMAINS IN PLACE AND HAS HAD VERY LITTLE URINARY OUTPUT. THIS RN NOTIFIED DR TRUJILLO THAT PT WAS 2L FLUID OVERLOADED THIS AFTERNOON AROUND 1400 DURING PT ROUNDING. LASIX WERE ORDERED BY PROVIDER AT TIME OF PTS TRANSFER AT 1615 TO [facility] SO PT DID NO RECIEVE LASIX PRIOR TO DC. PTS BELONGINGS WERE COLLECTED AND TAKEN HOME WITH MOTHER. PT DC'D AT 1615 VIA EMS TRANSPORT. REPORT WAS CALLED TO RN AT [facility].
[2024-08-06 18:38] LABS: COMPLEMENT COMPONENT 3 247 mg/dL (90-180); COMPLEMENT COMPONENT 4 47 mg/dL (10-40)
[2024-08-07 18:55] LABS: HEPATITIS A ANTIBODY, IGM Negative (Negative); HEPATITIS B CORE ANTIBODY, IGM Negative (Negative); HEPATITIS B SURFACE ANTIGEN Negative (Negative); HEPATITIS C AB CIA INTERP Negative (Negative); HEPATITIS C ANTIBODY CIA INDEX 0.02 IV
== END 2024-08-05 16:29 | disposition short-term general hospital (02) | DRG 840 ==
LOC: ER 11:24 → ERHOLD 16:57 → PCU 16:57
PROVIDERS: Emergency Medicine; Hospitalist; Internal Medicine; ADMIT Family Medicine
PROC: 30233N1 Transfusion of Nonautologous Red Blood Cells into Peripheral Vein, Percutaneous Approach (ICD-10-PCS; principal; 2024-08-03)
DX: C95.90 Leukemia, unspecified not having achieved remission (principal); J96.01 Acute respiratory failure with hypoxia; D61.818 Other pancytopenia; N17.9 Acute kidney failure, unspecified; N18.5 Chronic kidney disease, stage 5; E87.22 Chronic metabolic acidosis; E87.1 Hypo-osmolality and hyponatremia; I12.0 Hypertensive chronic kidney disease with stage 5 chronic kidney disease or end stage renal disease; K80.20 Calculus of gallbladder without cholecystitis without obstruction; E11.22 Type 2 diabetes mellitus with diabetic chronic kidney disease; E83.39 Other disorders of phosphorus metabolism; K21.9 Gastro-esophageal reflux disease without esophagitis; K76.0 Fatty (change of) liver, not elsewhere classified; E78.5 Hyperlipidemia, unspecified; Z79.899 Other long term (current) drug therapy
CPT/HCPCS: 0241U; 36415; 36430; 36600; 51701; 71045; 74177; 76705; 80048; 80053; 80069; 80076; 81001; 82570; 82607; 82746; 82803; 82947; 83605; 83615; 83690; 83735; 84156; 84300; 84550; 85007; 85025; 85027; 85045; 85060; 85610; 85730; 86160; 86850; 86900; 86901; 86923; 94760; 94762; 96374; 96375; 96376; 99285-25; A9270; C1751; J0295; J1171; J2270; J2405; J3010; J7030; J7040; J7070; J7120; P9016; Q5125; Q9967